=== PATIENT | male | born 1950 | race Caucasian/White ===

== ENCOUNTER 2016-04-06 10:11 | Emergency (ER) | payer MEDICAID, MEDICARE ==
[~2016-04-06] VITALS: Ht 162.6 cm; Wt 68.0 kg
[2016-04-06 10:19] VITALS: BP 125/71
[2016-04-06] MEDS ORDERED: IBUPROFEN 400 MG TABLET PO ONE (10:30)
[2016-04-06] MEDS ORDERED: IBUPROFEN 400 MG TABLET ONE (11:03)
== END 2016-04-06 11:37 | disposition home or self-care (01) ==
LOC: ER 10:13
DX: M54.5 Low back pain (principal); G89.29 Other chronic pain; B19.20 Unspecified viral hepatitis C without hepatic coma; I10 Essential (primary) hypertension; Z88.8 Allergy status to other drugs, medicaments and biological substances
CPT/HCPCS: 72100; 99284; A4606; Z7610

== ENCOUNTER → 2016-04-07 | Emergency (ER) | payer MEDICARE | END | disposition left against medical advice (07) | LOC: ER 09:55 | DX: Z53.21 Procedure and treatment not carried out due to patient leaving prior to being seen by health care provider (principal) ==